=== PATIENT | male | born 1955 | race American Indian/Alaskan Native ===

== ENCOUNTER 2022-06-16 11:55 | Inpatient (IN) | payer OTHER ==
--- NOTE | 2022-06-16 12:52 | Cat Scan Report ---
CT HEAD WITHOUT CONTRAST INDICATION / CLINICAL INFORMATION: Stroke symptoms. Right arm numbness. TECHNIQUE: All CT scans at this location are performed using CT dose reduction for ALARA by means of automated e xposure control. COMPARISON: None available. FINDINGS: HEMORRHAGE: No evidence of intracranial hemorrhage or extra-axial fluid collection. EXTRA-AXIAL SPACES: Cortical sulci, sylvian fissures and basilar cisterns have an unremarkable appear ance. VENTRICULAR SYSTEM: The third and lateral ventricles are the upper limit of normal for size given the patient's age.. CEREBRAL PARENCHYMA: Subtle periventricular and deep white matter lucencies noted compatible with manny rovascular ischemic change. A small region of decreased brain parenchymal attenuation is observed at the medial aspect of the left parietal vertex. This could represent an area of infarction, age indete rminate. Correlation with magnetic resonance imaging is suggested. MIDLINE SHIFT OR HERNIATION: There is no mass effect. CEREBELLUM / BRAINSTEM: Brainstem and cerebellum have an unremarkable appearance. MIDLINE STRUCTURES:No abnormalities of the pituitary gland or pineal region are identified. INTRACRANIAL VESSELS:No abnormalities are identified on this noncontrast head CT. ORBITS: visualized portions of the orbits have an unremarkable appearance. SOFT TISSUES of HEAD: No significant abnormality. CALVARIUM: Evaluation of bone windows reveals no abnormalities. PARANASAL SINUSES / MASTOID AIR CELLS: Visualized portions of the paranasal sinuses are free from inf lammatory mucosal disease. Mastoid air cells are normally pneumatized. ADDITIONAL FINDINGS: None. IMPRESSION: 1. 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 T his is age indeterminate. Correlation with magnetic resonance imaging would be useful for further cla rification of this finding. CODE STROKE: Time of Communication (DYE BECK REEL OPERATOR/CDT): 1145 Central standard time Licensed Practitioner Receiving Report: Dr. Saeed Signer Name: Omkar Lua MD Signed: 06/16/2022 12:47 PM Workstation Name: [id number]
--- NOTE | 2022-06-16 13:15 | XRay Report ---
CHEST 1 VIEW 06/16/2022 12:50 PM INDICATION / CLINICAL INFORMATION: cva. COMPARISON: None available. FINDINGS: SUPPORT DEVICES: There is a dual lead left pacemaker in expected position. HEART / MEDIASTINUM: Normal size of the cardiac silhouette with mild aortic calcification. LUNGS / PLEURA: No significant pulmonary abnormality. No significant pleural effusion. No pneumothora x. ADDITIONAL FINDINGS: There is mild thoracic spondylosis. IMPRESSION: 1. No acute abnormality of the chest. Signer Name: Emiliano Burt MD Signed: 06/16/2022 1:11 PM Workstation Name: [id number]
--- NOTE | 2022-06-16 13:18 | Consultation ---
History of Present Illness Consult date: 06/16/22 History of present illness: [facility] Consult Note # Demographics Consult Type: Acute Stroke Level 1 (0-4.5 hrs) Patient Location: Emergency Room First Name: Parag Last Name: James Date of : 1955 Age: 66 Gender: Male Facility: [facility] Time of Initial Page ( Time): 06/16/2022, 12:09 Time of Return Call ( Time): 06/16/2022, 12:09 # HPI Chief Complaint: weakness (focal) History: Patient reported difficulty lifting keys with right hand yesterday evening. He also reported right hand spasms. Last Known Normal: I have collected independent history specific to time last normal or last known well. We have collaborated with the provider and at this time, we have the most current timeline with the information that is available. 7pm Duration: constant hours days Possible Thrombolytic candidate: not on warfarin or NOACs no intracranial hemorrhage history no recent major surgery Associated Symptoms: no headache no neck pain # Scores Time of exam and NIHSS ( Time): 06/16/2022, 12:13 Level of Consciousness 1a: [0] = Alert; keenly responsive LOC Questions 1b: [0] = Answers both questions correctly LOC Commands 1c: [0] = Performs both tasks correctly Best Gaze 2: [0] = Normal Visual 3: [0] = No visual loss Facial Palsy 4: [0] = Normal symmetrical movements Motor Arm Left 5a: [0] = No drift Motor Arm Right 5b: [0] = No drift Motor Leg Left 6a: [0] = No drift Motor Leg Right 6b: [0] = No drift Limb Ataxia 7: [0] = Absent Sensory 8: [1] = [id number] sensory loss Best Language 9: [0] = No aphasia Dysarthria 10: [0] = Normal Extinction and Inattention 11: [0] = No abnormality NIHSS Total: 1 Modified Grady Scale (mRS) pre-stroke: [0] = No Symptoms Modified Kash Scale total: 0 VAN Screening: Negative # Exam SBP: 135 DBP: 80 Mental Status: awake alert and oriented x 3 follows commands Language: normal speech Motor: Difficulty with right wrist extension Additional Neurologic Exam: Evaluation limited due to observational assessment. In-person exam may be helpful for more subtle signs that cannot be detected via telemedicine. # ROS Pulmonary: no shortness of breath Cardiovascular: no chest pain # PMH-FH-SH Past Medical History: Diabetes hypertension Social History: non-smoker Medications: antihypertensive diabetic medication No antithrombotics or anticoagulants reported Allergies: NKDA # Data Glucose: 62 # Assessment Impression: Weakness Stroke versus peripheral process # Plan Thrombolytic/Intervention: NOT IV Thrombolysis or IA Intervention candidate Thrombolytic Exclusion (< 3 hour window): time of onset unclear Thrombolytic Exclusion: > 4.5 hours Target Blood Pressure: SBP < 220 Labs: CBC comprehensive metabolic panel ESR hemoglobin A1c lipid panel troponin TSH urine drug screen ua Imaging: (urgency: STAT): CT Head without contrast CT Angiogram Head and CT Angiogram Neck AND call back with results if abnormal Imaging: (urgency: routine): MRI Brain without contrast Diagnostic Test: echo without bubble study Therapy/Evaluation: NPO until swallow evaluation PT/OT evaluation Medication: aspirin 81 mg PLUS clopidogrel (Plavix) 75 mg for 21 days, then monotherapy therafter start statin with goal of LDL < 70 Other: LDL < 70 If patient has any neurological deterioration please call me back immediately permissive hypertension telemetry monitoring I have discussed my recommendations with the referring provider Outpatient Neurology consultation for further evaluation & management Disposition: admit # Demographics First Name: Parag Last Name: James Facility: [facility] Medications and Allergies Allergies Allergy/AdvReac Type Severity Reaction Status Date / Time No Known Allergies Allergy Unverified 06/16/22 12:00 Physical Examination - Vital Signs Vital Signs: Vital Signs Temp Pulse Resp BP Pulse Ox 97.6 F 81 20 135/81 100 06/16/22 12:06 06/16/22 12:06 06/16/22 12:06 06/16/22 12:06 06/16/22 12:06
--- NOTE | 2022-06-16 13:22 | Cat Scan Report ---
CTA NECK WITH CONTRAST 06/16/2022 INDICATION / CLINICAL INFORMATION: stroke sx. Right arm numbness COMPARISON: None. TECHNIQUE: Routine CTA of the neck is performed. 3-D/MIP reformats were postprocessed. Percentage st enosis is determined by direct quantitative measurements of diseased internal carotid artery diameter compared with normal distal internal carotid artery reference segments or by criteria similar to BLU CET where applicable. All CT scans at this location are performed using CT dose reduction for ALARA b y means of automated exposure control. CONTRAST: 100 ml of Omnipaque 350 FINDINGS: Carotid bifurcations: There is no evidence of carotid bifurcation stenosis. Carotid arteries: No significant abnormality. Cervical vertebral arteries: No significant abnormality. Aortic arch: No significant abnormality. Small bilateral pleural effusions are noted incidentally. Thyroid gland is moderately enlarged. There is a 11 mm left thyroid nodule present. IMPRESSION: No significant vascular abnormality. INCIDENTAL THYROID NODULE RECOMMENDATIONS Nonpalpable nodules detected on US or other anatomic imaging studies are termed incidentally discover ed nodules or incidentalomas. Nonpalpable nodules have the same risk of malignancy as palpable nodule s with the same size. Generally, only nodules >1 cm should be evaluated, since they have a greater po tential to be clinically significant cancers. (TENNILLE, 2009). Follow up for incidental thyroid nodules <1 cm is not recommended. In patients <35 years with an incidental thyroid nodule detected on CT, MRI, or extrathyroidal ultras ound, dedicated thyroid ultrasound is recommended if the nodule is 1 cm, has no suspicious imaging fe atures, and if the patient has normal life expectancy. In patients 35 years with an incidental thyroid nodule detected on CT, MRI, or extrathyroidal ultraso und, dedicated thyroid ultrasound is recommended if the nodule is 1.5 cm, has no suspicious imaging f eatures, and if the patient has normal life expectancy. Signer Name: Joel Mitchell MD Signed: 06/16/2022 1:17 PM Workstation Name: [id number]
--- NOTE | 2022-06-16 13:24 | Cat Scan Report ---
CTA HEAD WITH CONTRAST 06/16/2022 HISTORY: stroke sx. Right arm numbness COMPARISON: None. TECHNIQUE: All CT scans at this location are performed using CT dose reduction for ALARA by means of automated exposure control.. 3-D/MIP reformats postprocessed. Percentage stenosis is determined by d irect quantitative measurements of diseased internal carotid artery diameter compared with normal dis nicol internal carotid artery reference segments or by criteria similar to NASCET where applicable. CONTRAST: 100 ml of Omnipaque 350 FINDINGS: CTA HEAD: Intracranial vertebral arteries: No significant abnormality. Basilar artery: No significant abnormality. Posterior cerebral arteries: No significant abnormality. Intracranial internal carotid arteries: No significant abnormality. Anterior cerebral arteries: No significant abnormality. Middle cerebral arteries: No significant abnormality. Dural venous sinuses:Not optimally opacified. No significant abnormality. Additional findings: None. IMPRESSION: 1. No significant abnormality. Signer Name: Joel Mitchell MD Signed: 06/16/2022 1:19 PM Workstation Name: [id number]
[2022-06-16 13:56] LABS: Basophils % (Auto) 0.6 % (0.0-1.8); Eosinophils % (Auto) 0.7 % (0.0-4.3); Hematocrit 53.3 % (35.5-45.6); Hemoglobin 18.3 gm/dl (11.8-15.2); Lymphocytes # (Auto) 0.5 K/mm3 (1.2-5.4); Lymphocytes % (Auto) 11.7 % (13.4-35.0); Mean Corpuscular HGB Conc 34 % (32-34); Mean Corpuscular Volume 93 fl (84-94); Monocytes # (Auto) 0.4 K/mm3 (0.0-0.8); Monocytes % (Auto) 10.8 % (0.0-7.3); Platelet Count 245 K/mm3 (140-440); Red Blood Count 5.73 M/mm3 (3.65-5.03); Red Cell Distribution Width 14.6 % (13.2-15.2)
[2022-06-16 14:06] LABS: INR 0.94 (0.87-1.13)
[2022-06-16 14:07] LABS: Partial Thromboplastin Time 29.7 Sec. (24.2-36.6); Thrombin Time 24.2 Sec. (15.1-19.6)
[2022-06-16 14:15] LABS: Alanine Aminotransferase 29 units/L (7-56); Albumin 3.8 g/dL (3.9-5); BUN/Creatinine Ratio 14; Blood Urea Nitrogen 18 mg/dL (9-20); Calcium 9.7 mg/dL (8.4-10.2); Hemolysis Index 8
[2022-06-16 14:39] LABS: Creatine Kinase MB 4.6 ng/mL (0.0-4.0)
[2022-06-16 14:40] LABS: Amphetamine Screen,Urine Negative; Benzodiazepines Screen,Urine Negative; Cannabinoid Screen,Urine Negative; Cocaine Screen,Urine Negative; Methadone Screen,Urine Negative; Opiate Screen,Urine Negative
--- NOTE | 2022-06-16 15:11 | Emergency Department Report ---
ED Neuro Deficit HPI - General Chief Complaint: Neuro Symptoms/Deficit Stated Complaint: STROKE LIKE SYM Time Seen by Provider: 06/16/22 12:21 Source: patient Mode of arrival: Ambulatory Limitations: Physical Limitation - History of Present Illness Initial Comments: RIGHT ARM AND RIGHT LEG NUMBNEES AND TINGLING. STARTED LAST NIGHT 7PM. NO FACIAL DROOP. NO SLURRED SPEECH. RIGHT ARM DRIFT. -: Sudden, hour(s) Location: right arm, right leg Presenting Symptoms: Present: Weak/Paralyzed One Side History of same: No Place: outdoors Severity: moderate Quality: weak, constant Worsens With: none On Anticoagulants: No Context: sudden onset Associated Symptoms: denies: denies other symptoms, confusion, chest pain, cough - Related Data Allergies/Adverse Reactions: Allergies Allergy/AdvReac Type Severity Reaction Status Date / Time No Known Allergies Allergy Unverified 06/16/22 12:00 ED Review of Systems ROS: Stated complaint: STROKE LIKE SYM Other details as noted in HPI Constitutional: denies: chills, fever Eyes: denies: eye pain, eye discharge, vision change ENT: denies: ear pain, throat pain Respiratory: denies: cough, shortness of breath, wheezing Cardiovascular: denies: chest pain, palpitations Endocrine: no symptoms reported Gastrointestinal: denies: abdominal pain, nausea, diarrhea Genitourinary: denies: urgency, dysuria Musculoskeletal: denies: back pain, joint swelling, arthralgia Skin: denies: rash, lesions Neurological: denies: headache, weakness, paresthesias Psychiatric: denies: anxiety, depression Hematological/Lymphatic: denies: easy bleeding, easy bruising ED Past Medical Hx - Past Medical History Previous Medical History?: No Hx Hypertension: No Hx CVA: No - Surgical History Hx Pacemaker: Yes ED Neuro Physical Exam - General Limitations: Physical Limitation General appearance: alert, in no apparent distress Suspected Stroke: Yes - Head Head exam: Present: atraumatic, normocephalic - Eye Eye exam: Present: normal appearance - ENT ENT exam: Present: mucous membranes moist - Neck Neck exam: Present: normal inspection - Respiratory Respiratory exam: Present: normal lung sounds bilaterally. Absent: respiratory distress - Cardiovascular Cardiovascular Exam: Present: regular rate, normal rhythm. Absent: systolic murmur, diastolic murmur, rubs, gallop - GI/Abdominal GI/Abdominal exam: Present: soft, normal bowel sounds - Rectal Rectal exam: Present: deferred - Extremities Exam Extremities exam: Present: normal inspection - Back Exam Back exam: Present: normal inspection - Neurological Exam Neurological exam: Present: alert, oriented X3 - NIHSS Assessment Interval: Baseline 1a. Level of Consciousness: alert/keenly responsive 1b. LOC Questions: answers both correctly 1c. LOC Commands: performs tasks correctly 2. Best Gaze: normal 3. Visual: no visual loss 4. Facial Palsy: normal symmetrical movement 5b. Motor Arm Right: no drift 5a. Motor Arm Left: no drift 6a. Motor Leg Left: no drift 6b. Motor Leg Right: no drift 7. Limb Ataxia: absent 8. Sensory: mild/moderate sensory loss 9. Best Language: no aphasia 10. Dysarthria: normal 11. Extinction/Inattention: no abnormality Total Score: 1 Stroke Severity: Minor Stroke - Psychiatric Psychiatric exam: Present: normal affect, normal mood - Skin Skin exam: Present: warm, dry, intact, normal color. Absent: rash ED Course Vital Signs 06/16/22 06/16/22 06/16/22 12:06 13:03 13:17 Temperature 97.6 F 98.0 F Pulse Rate 81 61 Respiratory 20 14 14 Rate Blood Pressure 135/81 169/88 [Right] O2 Sat by Pulse 100 100 100 Oximetry 06/16/22 14:15 Temperature Pulse Rate 77 Respiratory 14 Rate Blood Pressure 153/101 [Right] O2 Sat by Pulse 99 Oximetry - Lab Data Result diagrams: 06/16/22 13:30 06/16/22 13:30 Lab Results 06/16/22 06/16/22 06/16/22 Range/Units 13:06 13:30 13:30 WBC 4.1 L (4.5-11.0) K/mm3 RBC 5.73 H (3.65-5.03) M/mm3 Hgb 18.3 H (11.8-15.2) gm/dl Hct 53.3 H (35.5-45.6) % MCV 93 (84-94) fl MCH 32 (28-32) pg MCHC 34 (32-34) % RDW 14.6 (13.2-15.2) % Plt Count 245 (140-440) K/mm3 Lymph % (Auto) 11.7 L (13.4-35.0) % Edgar % (Auto) 10.8 H (0.0-7.3) % Eos % (Auto) 0.7 (0.0-4.3) % Baso % (Auto) 0.6 (0.0-1.8) % Lymph # (Auto) 0.5 L (1.2-5.4) K/mm3 Edgar # (Auto) 0.4 (0.0-0.8) K/mm3 Eos # (Auto) 0.0 (0.0-0.4) K/mm3 Baso # (Auto) 0.0 (0.0-0.1) K/mm3 Seg Neutrophils % 76.2 H (40.0-70.0) % Seg Neutrophils # 3.1 (1.8-7.7) K/mm3 PT 13.6 (12.2-14.9) Sec. INR 0.94 (0.87-1.13) APTT 29.7 (24.2-36.6) Sec. Thrombin Time 24.2 H (15.1-19.6) Sec. Sodium (137-145) mmol/L Potassium (3.6-5.0) mmol/L Chloride (98-107) mmol/L Carbon Dioxide (22-30) mmol/L Anion Gap mmol/L BUN (9-20) mg/dL Creatinine (0.8-1.3) mg/dL Estimated GFR ml/min BUN/Creatinine Ratio % Glucose (75-100) mg/dL POC Glucose 46 L (70-105) mg/dL Calcium (8.4-10.2) mg/dL Total Bilirubin (0.1-1.2) mg/dL AST (5-40) units/L ALT (7-56) units/L Alkaline Phosphatase (35-129) units/L Total Creatine Kinase (55-170) units/L CK-MB (CK-2) (0.0-4.0) ng/mL CK-MB (CK-2) Rel Index (0-4) Troponin T (0.00-0.029) ng/mL Total Protein (6.3-8.2) g/dL Albumin (3.9-5) g/dL Albumin/Globulin Ratio % Urine Opiates Screen Urine Methadone Screen Ur Barbiturates Screen Ur Phencyclidine Scrn Ur Amphetamines Screen U Benzodiazepines Scrn Urine Cocaine Screen U Marijuana (THC) Screen Drugs of Abuse Note 06/16/22 06/16/22 Range/Units 13:30 14:16 WBC (4.5-11.0) K/mm3 RBC (3.65-5.03) M/mm3 Hgb (11.8-15.2) gm/dl Hct (35.5-45.6) % MCV (84-94) fl MCH (28-32) pg MCHC (32-34) % RDW (13.2-15.2) % Plt Count (140-440) K/mm3 Lymph % (Auto) (13.4-35.0) % Edgar % (Auto) (0.0-7.3) % Eos % (Auto) (0.0-4.3) % Baso % (Auto) (0.0-1.8) % Lymph # (Auto) (1.2-5.4) K/mm3 Edgar # (Auto) (0.0-0.8) K/mm3 Eos # (Auto) (0.0-0.4) K/mm3 Baso # (Auto) (0.0-0.1) K/mm3 Seg Neutrophils % (40.0-70.0) % Seg Neutrophils # (1.8-7.7) K/mm3 PT (12.2-14.9) Sec. INR (0.87-1.13) APTT (24.2-36.6) Sec. Thrombin Time (15.1-19.6) Sec. Sodium 142 (137-145) mmol/L Potassium 4.2 (3.6-5.0) mmol/L Chloride 102.0 (98-107) mmol/L Carbon Dioxide 28 (22-30) mmol/L Anion Gap 16 mmol/L BUN 18 (9-20) mg/dL Creatinine 1.3 (0.8-1.3) mg/dL Estimated GFR > 60 ml/min BUN/Creatinine Ratio 14 % Glucose 48 L (75-100) mg/dL POC Glucose (70-105) mg/dL Calcium 9.7 (8.4-10.2) mg/dL Total Bilirubin 0.80 (0.1-1.2) mg/dL AST 26 (5-40) units/L ALT 29 (7-56) units/L Alkaline Phosphatase 153 H (35-129) units/L Total Creatine Kinase 84 (55-170) units/L CK-MB (CK-2) 4.6 H (0.0-4.0) ng/mL CK-MB (CK-2) Rel Index 5.4 H (0-4) Troponin T < 0.010 (0.00-0.029) ng/mL Total Protein 6.3 (6.3-8.2) g/dL Albumin 3.8 L (3.9-5) g/dL Albumin/Globulin Ratio 1.5 % Urine Opiates Screen Negative Urine Methadone Screen Negative Ur Barbiturates Screen Negative Ur Phencyclidine Scrn Negative Ur Amphetamines Screen Negative U Benzodiazepines Scrn Negative Urine Cocaine Screen Negative U Marijuana (THC) Screen Negative Drugs of Abuse Note Disclamer - Radiology Data Radiology results: report reviewed, image reviewed Critical care attestation.: If time is entered above; I have spent that time in minutes in the direct care of this critically ill patient, excluding procedure time. ED Disposition Clinical Impression: CVA (cerebral vascular accident) Disposition: 09 ADMITTED INPATIENT Is pt being admited?: Yes Does the pt Need Aspirin: Yes Condition: Stable Referrals: MD KAUSHAL [Other] - 3-5 Days
[2022-06-16 15:39] LABS: Color,Urine Yellow (Yellow)
[2022-06-16 15:40] LABS: Mucus,Urine FEW /HPF
[2022-06-16] MEDS ORDERED: ACETAMINOPHEN 325 MG TAB PO PRN (16:41)
[2022-06-16] MEDS ORDERED: MORPHINE 2 MG/1 ML INJ IV PRN (16:41)
[2022-06-16] MEDS ORDERED: ONDANSETRON 4 MG/2 ML INJ IV PRN (16:41)
[2022-06-16] MEDS ORDERED: oxyCODONE /ACETAMINOPHEN 5-325MG TAB PO PRN (16:41)
--- NOTE | 2022-06-16 16:41 | History and Physical Report ---
History of Present Illness Date of examination: 06/16/22 Date of admission: 06/16/2022 Chief complaint: Right-sided weakness and numbness History of present illness: 66-year-old male with no significant past medical history except for pacemaker insertion and a poor historian comes in for right arm and right leg numbness and tingling since last night. Slight weakness on the right side. No slurred speech. Patient able to walk. During my examination patient had some right-sided numbness. No weakness. Code stroke was called. - Past Medical History --PPM - Surgical History --Pacemaker: Yes -Family history --Htn - Social history --no smoking or alcohol Review of Systems ROS: Stated complaint: STROKE LIKE SYM Other details as noted in HPI Constitutional: denies: chills, fever Eyes: denies: eye pain, eye discharge, vision change ENT: denies: ear pain, throat pain Respiratory: denies: cough, shortness of breath, wheezing Cardiovascular: denies: chest pain, palpitations Endocrine: no symptoms reported Gastrointestinal: denies: abdominal pain, nausea, diarrhea Genitourinary: denies: urgency, dysuria Musculoskeletal: denies: back pain, joint swelling, arthralgia [employer] right-sided numbness and weakness denies: headache, weakness, paresthesias Psychiatric: denies: anxiety, depression Hematological/Lymphatic: denies: easy bleeding, easy bruising Medications and Allergies Allergies Allergy/AdvReac Type Severity Reaction Status Date / Time No Known Allergies Allergy Unverified 06/16/22 12:00 Exam - Constitutional Vitals: Temp Pulse Resp BP Pulse Ox 98.0 F 77 14 153/101 99 06/16/22 13:17 06/16/22 14:15 06/16/22 14:15 06/16/22 14:15 06/16/22 14:15 General appearance: Present: no acute distress, well-nourished - EENT Eyes: Present: PERRL ENT: hearing intact, clear oral mucosa - Neck Neck: Present: supple, normal ROM - Respiratory Respiratory effort: normal Respiratory: bilateral: CTA - Cardiovascular Heart Sounds: Present: S1 & S2. Absent: rub, click - Extremities Extremities: pulses symmetrical, No edema Peripheral Pulses: within normal limits - Abdominal General gastrointestinal: Present: soft, non-tender, non-distended, normal bowel sounds Male genitourinary: Present: normal - Integumentary Integumentary: Present: clear, warm, dry - Musculoskeletal Musculoskeletal: gait normal, strength equal bilaterally - Psychiatric Psychiatric: appropriate mood/affect, intact judgment & insight - Neurologic Neurologic: CNII-XII intact, focal deficits (Right-sided decreased sensation), moves all extremities HEART Score - HEART Score Age: 45-65 Risk factors: No known risk factors Troponin: Troponin T < 0.010 ng/mL (0.00-0.029) 06/16/22 13:30 Troponin: < normal limit - Critical Actions Critical Actions: 0-3 pts:0.9-1.7%risk of adverse cardiac event.Candidate for discharge Results - Labs CBC & Chem 7: 06/16/22 13:30 06/16/22 13:30 Labs: Laboratory Last Values WBC 4.1 K/mm3 (4.5-11.0) L 06/16/22 13:30 RBC 5.73 M/mm3 (3.65-5.03) H 06/16/22 13:30 Hgb 18.3 gm/dl (11.8-15.2) H 06/16/22 13:30 Hct 53.3 % (35.5-45.6) H 06/16/22 13:30 MCV 93 fl (84-94) 06/16/22 13:30 MCH 32 pg (28-32) 06/16/22 13:30 MCHC 34 % (32-34) 06/16/22 13:30 RDW 14.6 % (13.2-15.2) 06/16/22 13:30 Plt Count 245 K/mm3 (140-440) 06/16/22 13:30 Lymph % (Auto) 11.7 % (13.4-35.0) L 06/16/22 13:30 [place] % (Auto) 10.8 % (0.0-7.3) H 06/16/22 13:30 Eos % (Auto) 0.7 % (0.0-4.3) 06/16/22 13:30 Baso % (Auto) 0.6 % (0.0-1.8) 06/16/22 13:30 Lymph # (Auto) 0.5 K/mm3 (1.2-5.4) L 06/16/22 13:30 [place] # (Auto) 0.4 K/mm3 (0.0-0.8) 06/16/22 13:30 Eos # (Auto) 0.0 K/mm3 (0.0-0.4) 06/16/22 13:30 Baso # (Auto) 0.0 K/mm3 (0.0-0.1) 06/16/22 13:30 Seg Neutrophils % 76.2 % (40.0-70.0) H 06/16/22 13:30 Seg Neutrophils # 3.1 K/mm3 (1.8-7.7) 06/16/22 13:30 PT 13.6 Sec. (12.2-14.9) 06/16/22 13:30 INR 0.94 (0.87-1.13) 06/16/22 13:30 APTT 29.7 Sec. (24.2-36.6) 06/16/22 13:30 Thrombin Time 24.2 Sec. (15.1-19.6) H 06/16/22 13:30 Sodium 142 mmol/L (137-145) 06/16/22 13:30 Potassium 4.2 mmol/L (3.6-5.0) 06/16/22 13:30 Chloride 102.0 mmol/L (98-107) 06/16/22 13:30 Carbon Dioxide 28 mmol/L (22-30) 06/16/22 13:30 Anion Gap 16 mmol/L 06/16/22 13:30 BUN 18 mg/dL (9-20) 06/16/22 13:30 Creatinine 1.3 mg/dL (0.8-1.3) 06/16/22 13:30 Estimated GFR > 60 ml/min 06/16/22 13:30 BUN/Creatinine Ratio 14 % 06/16/22 13:30 Glucose 48 mg/dL (75-100) L 06/16/22 13:30 POC Glucose 46 mg/dL (70-105) L 06/16/22 13:06 Calcium 9.7 mg/dL (8.4-10.2) 06/16/22 13:30 Total Bilirubin 0.80 mg/dL (0.1-1.2) 06/16/22 13:30 AST 26 units/L (5-40) 06/16/22 13:30 ALT 29 units/L (7-56) 06/16/22 13:30 Alkaline Phosphatase 153 units/L (35-129) H 06/16/22 13:30 Total Creatine Kinase 84 units/L (55-170) 06/16/22 13:30 CK-MB (CK-2) 4.6 ng/mL (0.0-4.0) H 06/16/22 13:30 CK-MB (CK-2) Rel Index 5.4 (0-4) H 06/16/22 13:30 Troponin T < 0.010 ng/mL (0.00-0.029) 06/16/22 13:30 Total Protein 6.3 g/dL (6.3-8.2) 06/16/22 13:30 Albumin 3.8 g/dL (3.9-5) L 06/16/22 13:30 Albumin/Globulin Ratio 1.5 % 06/16/22 13:30 Urine Color Yellow (Yellow) 06/16/22 14:16 Urine Turbidity Clear (Clear) 06/16/22 14:16 Specific [place] (Man) 1.029 (1.003-1.030) 06/16/22 14:16 Ur Protein (Man) 2+ mg/dL (Negative) 06/16/22 14:16 Ur Ketones (Man) 5mg/dl (Negative) 06/16/22 14:16 Ur Nitrite (Man) Negative (Negative) 06/16/22 14:16 Urine Bilirubin (Man) Negative (Negative) 06/16/22 14:16 Urine Ictotest Not Reportable 06/16/22 14:16 Leukocyte Esterase (Man) Negative (Negative) 06/16/22 14:16 Urine WBC (Auto) 1.0 /HPF (0.0-6.0) 06/16/22 14:16 Urine RBC (Auto) 1.0 /HPF (0.0-6.0) 06/16/22 14:16 Urine RBC (Manual) Negative (Negative) 06/16/22 14:16 Urine Mucus Few /HPF 06/16/22 14:16 Urine Opiates Screen Negative 06/16/22 14:16 Urine Methadone Screen Negative 06/16/22 14:16 Ur Barbiturates Screen Negative 06/16/22 14:16 Ur Phencyclidine Scrn Negative 06/16/22 14:16 Ur Amphetamines Screen Negative 06/16/22 14:16 U Benzodiazepines Scrn Negative 06/16/22 14:16 Urine Cocaine Screen Negative 06/16/22 14:16 U Marijuana (THC) Screen Negative 06/16/22 14:16 Drugs of Abuse Note Disclamer 06/16/22 14:16 Short CBC 06/16/22 Range/Units 13:30 WBC 4.1 L (4.5-11.0) K/mm3 Hgb 18.3 H (11.8-15.2) gm/dl Hct 53.3 H (35.5-45.6) % Plt Count 245 (140-440) K/mm3 BMP 06/16/22 06/17/22 13:30 06:36 Sodium 142 141 Potassium 4.2 3.7 Chloride 102.0 103.9 Carbon Dioxide 28 24 BUN 18 22 H Creatinine 1.3 1.8 H Glucose 48 L 323 H Calcium 9.7 8.4 Cardiac Enzymes 06/16/22 Range/Units 13:30 Total Creatine Kinase 84 (55-170) units/L CK-MB (CK-2) 4.6 H (0.0-4.0) ng/mL Troponin T < 0.010 (0.00-0.029) ng/mL Liver Function 06/16/22 06/17/22 Range/Units 13:30 06:36 Total Bilirubin 0.80 0.60 (0.1-1.2) mg/dL AST 26 14 (5-40) units/L ALT 29 19 (7-56) units/L Alkaline Phosphatase 153 H 113 (35-129) units/L Albumin 3.8 L 3.1 L (3.9-5) g/dL Urine 06/16/22 Range/Units 14:16 Urine Color Yellow (Yellow) - Imaging and Cardiology EKG: report reviewed (Normal sinus rhythm no acute ST-T wave changes) Chest x-ray: report reviewed Imaging and Cardiology: Head CT Findings there is a presence of small cortical infarction involving the left parietal vertex. This is age-indeterminate. Correlation with MRI would be useful for further classification of this finding. Head CT and neck CTA No significant abnormalities Assessment and Plan Advance Directives: Yes (Full code) VTE prophylaxis?: Chemical Plan of care discussed with patient/family: Yes - Patient Problems (1) Acute CVA (cerebrovascular accident) Current Visit: Yes Status: Acute Plan to address problem: Right-sided numbness Rule out thalamic stroke MRI is not possible because of the patient's pacemaker. Clinical diagnosis Neurology consult No motor deficits Echocardiogram Patient may be discharged on DOAC after the echocardiogram results (2) Polycythemia due to fall in plasma volume Current Visit: Yes Status: Acute Plan to address problem: IV fluids for now (3) DVT prophylaxis Current Visit: Yes Status: Acute Plan to address problem: On heparin and GI prophylaxis (4) Advance care planning Current Visit: Yes Status: Acute Plan to address problem: , Disease education conducted and care plan discussed diagnosis discussed and prognosis discussed. Patient is full code. Patient acknowledges understanding with care plan. +30 minutes.
[2022-06-16] MEDS: FAMOTIDINE 10 MG TAB PO SCH (22:33)
[2022-06-16] MEDS: SODIUM CHLORIDE 0.9% 1000 ML 1,000 ML IV SCH (23:15)
[2022-06-17 08:03] LABS: Albumin 3.1 g/dL (3.9-5); Calcium 8.4 mg/dL (8.4-10.2)
[2022-06-17] MEDS: INSULIN LISPRO 100 UNIT/ML SUB-Q SCH ×4 (08:05→21:12)
[2022-06-17] MEDS: FAMOTIDINE 10 MG TAB PO SCH ×2 (09:22→21:13)
--- NOTE | 2022-06-17 09:35 | Progress Note ---
Assessment and Plan Assessment and plan: Head CT Findings there is a presence of small cortical infarction involving the left parietal vertex. This is age-indeterminate. Correlation with MRI would be useful for further classification of this finding. Head CT and neck CTA No significant abnormalities Assessment and Plan Advance Directives: Yes (Full code) VTE prophylaxis?: Chemical Plan of care discussed with patient/family: Yes - Patient Problems -- Acute CVA (cerebrovascular accident) CT head small cortical infarction involving left parietal vertex, age indeterminate MRI is not possible because of the patient's pacemaker. Neurology evaluation pending Echocardiogram; EF less than 20% no PFO Patient may be discharged on DOAC after the echocardiogram results --Acute versus acute on chronic systolic congestive heart failure ; LVEF less than 20% IV diuretics, beta-blockers No LAUREN inhibitors in view of acute kidney injury with creatinine of 1.8 Input output monitoring Fluid restriction, low-sodium diet Cardiology consult -- Polycythemia due to fall in plasma volume Current Visit: Yes Status: Acute Plan to address problem: IV fluids for now --DVT prophylaxis Current Visit: Yes Status: Acute Plan to address problem: On heparin and GI prophylaxis -- Advance care planning Current Visit: Yes Status: Acute Plan to address problem: , Disease education conducted and care plan discussed diagnosis discussed and prognosis discussed. Patient is full code. Patient acknowledges unders tanding with care plan. +30 minutes. History Interval history: I have seen and examined the patient at the bedside Patient's chart and medications reviewed Patient feels slightly better today His right-sided weakness significantly improved Neuro work-up is in progress Vital signs noted Hospitalist Physical - Constitutional Vitals: Temp Pulse Resp BP Pulse Ox 97.9 F 73 16 165/103 97 06/17/22 03:56 06/17/22 03:56 06/17/22 03:56 06/17/22 03:56 06/17/22 03:56 General appearance: Present: no acute distress, well-nourished - EENT Eyes: Present: PERRL, EOM intact - Neck Neck: Present: supple, normal ROM - Respiratory Respiratory effort: normal Respiratory: bilateral: diminished, negative: rales, rhonchi, wheezing - Cardiovascular Rhythm: regular Heart Sounds: Present: S1 & S2 - Extremities Extremities: no ischemia, No edema - Abdominal General gastrointestinal: soft, non-tender, non-distended, normal bowel sounds - Integumentary Integumentary: Present: clear, warm - Psychiatric Psychiatric: appropriate mood/affect, cooperative - Neurologic Neurologic: moves all extremities HEART Score - HEART Score Age: 45-65 Risk factors: No known risk factors Troponin: Troponin T < 0.010 ng/mL (0.00-0.029) 06/16/22 13:30 Troponin: < normal limit - Critical Actions Critical Actions: 0-3 pts:0.9-1.7%risk of adverse cardiac event.Candidate for discharge Results - Labs CBC & Chem 7: 06/17/22 06:36 06/17/22 06:36 Labs: Laboratory Last Values WBC 4.1 K/mm3 (4.5-11.0) L 06/16/22 13:30 RBC 5.73 M/mm3 (3.65-5.03) H 06/16/22 13:30 Hgb 18.3 gm/dl (11.8-15.2) H 06/16/22 13:30 Hct 53.3 % (35.5-45.6) H 06/16/22 13:30 MCV 93 fl (84-94) 06/16/22 13:30 MCH 32 pg (28-32) 06/16/22 13:30 MCHC 34 % (32-34) 06/16/22 13:30 RDW 14.6 % (13.2-15.2) 06/16/22 13:30 Plt Count 245 K/mm3 (140-440) 06/16/22 13:30 Lymph % (Auto) 11.7 % (13.4-35.0) L 06/16/22 13:30 [place] % (Auto) 10.8 % (0.0-7.3) H 06/16/22 13:30 Eos % (Auto) 0.7 % (0.0-4.3) 06/16/22 13:30 Baso % (Auto) 0.6 % (0.0-1.8) 06/16/22 13:30 Lymph # (Auto) 0.5 K/mm3 (1.2-5.4) L 06/16/22 13:30 [place] # (Auto) 0.4 K/mm3 (0.0-0.8) 06/16/22 13:30 Eos # (Auto) 0.0 K/mm3 (0.0-0.4) 06/16/22 13:30 Baso # (Auto) 0.0 K/mm3 (0.0-0.1) 06/16/22 13:30 Seg Neutrophils % 76.2 % (40.0-70.0) H 06/16/22 13:30 Seg Neutrophils # 3.1 K/mm3 (1.8-7.7) 06/16/22 13:30 PT 13.6 Sec. (12.2-14.9) 06/16/22 13:30 INR 0.94 (0.87-1.13) 06/16/22 13:30 APTT 29.7 Sec. (24.2-36.6) 06/16/22 13:30 Thrombin Time 24.2 Sec. (15.1-19.6) H 06/16/22 13:30 Sodium 141 mmol/L (137-145) 06/17/22 06:36 Potassium 3.7 mmol/L (3.6-5.0) 06/17/22 06:36 Chloride 103.9 mmol/L (98-107) 06/17/22 06:36 Carbon Dioxide 24 mmol/L (22-30) 06/17/22 06:36 Anion Gap 17 mmol/L 06/17/22 06:36 BUN 22 mg/dL (9-20) H 06/17/22 06:36 Creatinine 1.8 mg/dL (0.8-1.3) H 06/17/22 06:36 Estimated GFR 46 ml/min 06/17/22 06:36 BUN/Creatinine Ratio 12 % 06/17/22 06:36 Glucose 323 mg/dL (75-100) H 06/17/22 06:36 POC Glucose 310 mg/dL (70-105) H 06/17/22 08:16 Calcium 8.4 mg/dL (8.4-10.2) 06/17/22 06:36 Total Bilirubin 0.60 mg/dL (0.1-1.2) 06/17/22 06:36 AST 14 units/L (5-40) 06/17/22 06:36 ALT 19 units/L (7-56) 06/17/22 06:36 Alkaline Phosphatase 113 units/L (35-129) 06/17/22 06:36 Total Creatine Kinase 84 units/L (55-170) 06/16/22 13:30 CK-MB (CK-2) 4.6 ng/mL (0.0-4.0) H 06/16/22 13:30 CK-MB (CK-2) Rel Index 5.4 (0-4) H 06/16/22 13:30 Troponin T < 0.010 ng/mL (0.00-0.029) 06/16/22 13:30 Total Protein 4.8 g/dL (6.3-8.2) L D 06/17/22 06:36 Albumin 3.1 g/dL (3.9-5) L 06/17/22 06:36 Albumin/Globulin Ratio 1.8 % 06/17/22 06:36 Urine Color Yellow (Yellow) 06/16/22 14:16 Urine Turbidity Clear (Clear) 06/16/22 14:16 Specific [place] (Man) 1.029 (1.003-1.030) 06/16/22 14:16 Ur Protein (Man) 2+ mg/dL (Negative) 06/16/22 14:16 Ur Ketones (Man) 5mg/dl (Negative) 06/16/22 14:16 Ur Nitrite (Man) Negative (Negative) 06/16/22 14:16 Urine Bilirubin (Man) Negative (Negative) 06/16/22 14:16 Urine Ictotest Not Reportable 06/16/22 14:16 Leukocyte Esterase (Man) Negative (Negative) 06/16/22 14:16 Urine WBC (Auto) 1.0 /HPF (0.0-6.0) 06/16/22 14:16 Urine RBC (Auto) 1.0 /HPF (0.0-6.0) 06/16/22 14:16 Urine RBC (Manual) Negative (Negative) 06/16/22 14:16 Urine Mucus Few /HPF 06/16/22 14:16 Urine Opiates Screen Negative 06/16/22 14:16 Urine Methadone Screen Negative 06/16/22 14:16 Ur Barbiturates Screen Negative 06/16/22 14:16 Ur Phencyclidine Scrn Negative 06/16/22 14:16 Ur Amphetamines Screen Negative 06/16/22 14:16 U Benzodiazepines Scrn Negative 06/16/22 14:16 Urine Cocaine Screen Negative 06/16/22 14:16 U Marijuana (THC) Screen Negative 06/16/22 14:16 Drugs of Abuse Note Disclamer 06/16/22 14:16 Elaine/IV: Voiding Method Urinal Active Medications - Current Medications Current Medications: Generic Name Dose Route Start Last Admin Trade Name Freq PRN Reason Stop Dose Admin Acetaminophen 650 mg 06/16/22 16:41 Acetaminophen 325 Mg Tab PO Q4H PRN Pain MILD(1-3)/Fever >100.5/MOORE Aspirin 325 mg 06/17/22 10:00 06/17/22 09:22 Aspirin 325 Mg Tab PO 325 mg QDAY MONE Administration Atorvastatin Calcium 40 mg 06/16/22 22:00 06/16/22 22:33 Atorvastatin 40 Mg Tab PO 40 mg QHS MONE Administration Famotidine 10 mg 06/16/22 22:00 06/17/22 09:22 Famotidine 10 Mg Tab PO 10 mg BID MONE Administration Sodium Chloride 1,000 mls @ 75 mls/hr 06/16/22 16:45 06/16/22 23:15 Nacl 0.9% 1000 Ml IV 75 mls/hr DIRECT MONE Administration Insulin Human Isoph/Insulin Regular 20 unit 06/17/22 10:00 Insulin Nph/Regular 70/30 Inj SUB-Q BIDDIAB MONE Insulin Human Lispro 0 unit 06/17/22 11:30 Insulin Lispro 100 Unit/Ml SUB-Q ACHS MONE Protocol Morphine Sulfate 2 mg 06/16/22 16:41 Morphine 2 Mg/1 Ml Inj IV Q4H PRN Pain, Moderate (4-6) Ondansetron HCl 4 mg 06/16/22 16:41 Ondansetron 4 Mg/2 Ml Inj IV Q8H PRN Nausea And Vomiting Oxycodone/Acetaminophen 1 tab 06/16/22 16:41 Oxycodone /Acetaminophen 5-325mg Tab PO Q6H PRN Pain, Moderate (4-6) Sodium Chloride 10 ml 06/16/22 22:00 06/16/22 22:33 Sodium Chloride 0.9% 10 Ml Flush Syringe IV 10 ml BID MONE Administration Sodium Chloride 10 ml 06/16/22 16:41 Sodium Chloride 0.9% 10 Ml Flush Syringe IV PRN PRN LINE FLUSH Sodium Chloride 10 ml 06/16/22 17:49 Sodium Chloride 0.9% 10 Ml Flush Syringe IV PRN PRN LINE FLUSH
[2022-06-17] MEDS ORDERED: ASPIRIN 325 MG TAB PO SCH (10:00)
--- NOTE | 2022-06-17 10:06 | Consultation ---
History of Present Illness Consult date: 06/17/22 Reason for Consult: cva Chief complaint: Right-sided weakness History of present illness: 66 yo right-handed male with htn, dm, +ppm , difficulty w/ walking (at baseline) and so uses a cane ever since the pacemaker was inserted in Jul 2021. He presents with a LKNormal time on the evening of 06/15/22 while he was at [employer] and he started dropping things from his right hand; noticed weakness / numbness of arm (difficulty w/ gripping; difficulty w/ feet) right hand was constantly shaking yesterday; notes slight improvement today but not quite back to his baseline. Past History Past Medical History: other (+ppm) Past Surgical History: No surgical history, Other (+ppm) Social history: no significant social history Family history: no significant family history Medications and Allergies Allergies Allergy/AdvReac Type Severity Reaction Status Date / Time No Known Allergies Allergy Unverified 06/16/22 12:00 Active Meds: Active Medications Acetaminophen (Acetaminophen 325 Mg Tab) 650 mg PO Q4H PRN PRN Reason: Pain MILD(1-3)/Fever >100.5/MOORE Aspirin (Aspirin 325 Mg Tab) 325 mg PO QDAY [facility] Last Admin: 06/17/22 09:22 Dose: 325 mg Atorvastatin Calcium (Atorvastatin 40 Mg Tab) 40 mg PO QHS [facility] Last Admin: 06/16/22 22:33 Dose: 40 mg Famotidine (Famotidine 10 Mg Tab) 10 mg PO BID [facility] Last Admin: 06/17/22 09:22 Dose: 10 mg Sodium Chloride (Nacl 0.9% 1000 Ml) 1,000 mls @ 75 mls/hr IV DIRECT [facility] Last Admin: 06/16/22 23:15 Dose: 75 mls/hr Insulin Human Isoph/Insulin Regular (Insulin Nph/Regular 70/30 Inj) 20 unit SUB-Q BIDDIAB [facility] Insulin Human Lispro (Insulin Lispro 100 Unit/Ml) 0 unit SUB-Q ACHS [facility]; Protocol Morphine Sulfate (Morphine 2 Mg/1 Ml Inj) 2 mg IV Q4H PRN PRN Reason: Pain, Moderate (4-6) Ondansetron HCl (Ondansetron 4 Mg/2 Ml Inj) 4 mg IV Q8H PRN PRN Reason: Nausea And Vomiting Oxycodone/Acetaminophen (Oxycodone /Acetaminophen 5-325mg Tab) 1 tab PO Q6H PRN PRN Reason: Pain, Moderate (4-6) Sodium Chloride (Sodium Chloride 0.9% 10 Ml Flush Syringe) 10 ml IV BID MONE Last Admin: 06/16/22 22:33 Dose: 10 ml Sodium Chloride (Sodium Chloride 0.9% 10 Ml Flush Syringe) 10 ml IV PRN PRN PRN Reason: LINE FLUSH Sodium Chloride (Sodium Chloride 0.9% 10 Ml Flush Syringe) 10 ml IV PRN PRN PRN Reason: LINE FLUSH Review of Systems All systems: negative (as per hpi;) Physical Examination - Vital Signs Vital Signs: Vital Signs Temp Pulse Resp BP Pulse Ox 97.6 F 81 20 135/81 100 06/16/22 12:06 06/16/22 12:06 06/16/22 12:06 06/16/22 12:06 06/16/22 12:06 - Physical Exam Narrative exam: Gen: nad, well-nourished; Head: normocephalic; Eyes: no gaze deviation; no ptosis; ENT: normal vocalization; CVS: warm and well-perfused; Pulm: normal work of breathing; GI: appears non-distended; Ext: no cyanosis appreciated at distal extremities; Skin: no acute rash at distal extremities; Heme: no pathologic ecchymosis appreciated at distal extremities; Neuro: alert, oriented to name, age, month, year, surroundings, no dysarthria, no aphasia, CN 2 - PERRL, visual maddox grossly intact, CN 3, 4, 6 - EOMI, CN 5 - facial sensation symmetric to light touch, CN 7 - facial movement symmetric, CN 8 - hearing grossly intact, CN 9, 10 - uvula midline, CN 11 symmetric shoulder movement, CN 12 - tongue midline; Motor - at least 4+/5 at all exts except right hand helpdesk analyst is 3/5 strength; Sensory - light touch symmetric, Cerebellar - left fnf / bilatearl hts intact except right fnf deficit due to weakness, Gait - deferred secondary to fall risk; NIHSS (1a.) Level of Consciousness:0 (1b.) LOC Questions:0 (1c.) LOC Commands:0 (2.) Best Gaze:0 (3.) Visual:0 (4.) Facial Palsy:0 (5a.) Motor Arm, Left:0 (5b.) Motor Arm, Right:0 (6a.) Motor Leg, Left:0 (6b.) Motor Leg, Right:0 (7.) Limb Ataxia:0 (8.) Sensory:0 (9.) Best Language:0 (10.) Dysarthria: 0 (11.) Extinction and Inattention:0 NIHSS Total Score: 0 Results - Laboratory Findings CBC and BMP: 06/17/22 06:36 06/17/22 06:36 Abnormal Lab Findings: Abnormal Labs 06/16/22 06/16/22 06/16/22 13:06 13:30 13:30 WBC 4.1 L RBC 5.73 H Hgb 18.3 H Hct 53.3 H Lymph % (Auto) 11.7 L [place] % (Auto) 10.8 H Lymph # (Auto) 0.5 L Seg Neutrophils % 76.2 H Thrombin Time 24.2 H BUN Creatinine Glucose POC Glucose 46 L Alkaline Phosphatase CK-MB (CK-2) CK-MB (CK-2) Rel Index Total Protein Albumin 06/16/22 06/17/22 06/17/22 13:30 06:36 08:16 WBC RBC Hgb Hct Lymph % (Auto) [place] % (Auto) Lymph # (Auto) Seg Neutrophils % Thrombin Time BUN 22 H Creatinine 1.8 H Glucose 48 L 323 H POC Glucose 310 H Alkaline Phosphatase 153 H CK-MB (CK-2) 4.6 H CK-MB (CK-2) Rel Index 5.4 H Total Protein 4.8 L D Albumin 3.8 L 3.1 L Assessment and Plan 66 yo right-handed male with htn, dm, +ppm , difficulty w/ walking (cane at baseline) who presents with a LKNormal time on the evening of 06/15/22 while he was at [facility] and he started dropping things from his right hand; noticed weakness / numbness of arm (difficulty w/ gripping; difficulty w/ feet) right hand was constantly shaking yesterday; notes slight improvement today but not back to his baseline. 1. Acute Ischemic Stroke: ASA 325 mg PO qday, Plavix 75 mg po qday x 21 days; MRI Brain w/o contrast if ppm is mri-compatible o/w repeat nchct in am; TTEcho, confirm LDL/HgbA1C/TSH/Covid-19/UDS, telemetry, NIHSS q4 hours; SBP goal 160-200 mmHg and DBP 80-100 mmHg for now. Statin therapy for a goal LDL of 70, when patient passes swallow evaluation. PT/OT/ST/Swallow evaluation. Long-term risk- factor modification, including a strict diet/exercise regimen for secondary stroke prophylaxis. Stroke education prior to discharge. Followup with Stroke Neurology in 4-6 weeks. 2. Right Hand Weakness - pt/ot evaluation/monitoring. 3. Unsteady Gait - pt/ot evaluation/monitoring; cane at baseline. 4. Cardiac Arrhythmia - consider interrogating ppm via cardiology. Colby Josue MD Neurology [id number]
--- NOTE | 2022-06-17 10:34 | Electrocardiograph Report ---
[facility] Test Date: 2022-06-17 Test Time: 06:49:50 Pat Name: PHILL SHIELDS Department: Room: A484 1 Gender: M Psychiatric Secretary: KAREN : 1955 Requested By: CARLOS KELLY Order Number: [id number] Reading MD: Stuart Yanez Measurements Intervals [place] Rate: 71 P: 66 AL: 191 QRS: -90 QRSD: 143 T: 88 QT: 482 QTc: 524 Interpretive Statements Atrial-sensed ventricular-paced rhythm No previous ECG available for comparison Electronically Signed On 06-17-2022 10:34:09 EDT by Stuart Yanez
[2022-06-17 11:12] LABS: Hematocrit 47.8 % (35.5-45.6); Hemoglobin 15.9 gm/dl (11.8-15.2); Mean Corpuscular HGB Conc 33 % (32-34); Mean Corpuscular Volume 95 fl (84-94); Platelet Count 201 K/mm3 (140-440); Red Blood Count 5.03 M/mm3 (3.65-5.03); Red Cell Distribution Width 14.3 % (13.2-15.2)
[2022-06-17] MEDS: INSULIN NPH/REGULAR 70/30 INJ SUB-Q SCH ×2 (13:16→18:45)
[2022-06-17 20:36] LABS: Total Cells Counted 100
[2022-06-17 20:37] LABS: Platelet Estimate Consistent w Auto
[2022-06-17] MEDS ORDERED: hydrALAZINE 20 MG/1 ML INJ IV PRN (23:27)
[2022-06-17] MEDS: SODIUM CHLORIDE 0.9% 1000 ML 1,000 ML IV SCH (23:38)
[2022-06-18 04:36] VITALS: BP 172/104
--- NOTE | 2022-06-18 14:13 | Discharge Summary ---
Providers - Providers Date of Admission: 06/16/22 17:56 Date of discharge: 06/18/22 Attending physician: LILIAN ARAGON 06/16/22 16:41 Consult to Physician [CONS] Routine Comment: Consulting Provider: CARMITA FRAGA Physician Instructions: Reason For Exam: CVA 06/16/22 17:49 Occupational Therapy Evaluate and Treat [CONS] Routine Comment: Reason For Exam: Neuro deficits Physical Therapy Evaluation and Treat [CONS] Routine Comment: Reason For Exam: Neuro deficits Hospitalization Condition: Fair Pertinent studies: CT head without contrast: findings suggest presence of a small cortical infarction involving the left parietal vertex age-indeterminate correlation with MRI, MRI cannot be done as patient has permanent pacemaker CTA head no significant abnormality CTA neck no significant vascular abnormality Echocardiogram LVEF less than 20% no PFO on bubble study Chest x-ray no acute abnormality Disposition: 07 LEFT AGAINST MEDICAL ADVICE Exam - Constitutional Vitals: Temp Pulse Resp BP Pulse Ox 98.0 F 91 H 15 172/104 95 06/18/22 03:35 06/18/22 03:35 06/18/22 03:35 06/18/22 03:35 06/18/22 03:35 Plan Follow up with: MD KAUSHAL [Other] - 3-5 Days Forms: AMA Form
--- NOTE | 2022-06-18 15:04 | Event Note ---
Date: 06/18/22 I called [facility] at [phone] Elías Brooks, the patient's condition, tests and reports, treatment plan as well as discharge today. I also informed that patient left AMA prior to my giving discharge orders.I answered all her questions, she said she would set up follow- up appointments for him, and was appreciative of my call.
== END 2022-06-18 07:35 | disposition left against medical advice (07) | DRG 66 ==
LOC: ED 11:55 → 4A 17:56
PROVIDERS: ADMIT Internal Medicine; ATTEND Internal Medicine
DX: I63.9 Cerebral infarction, unspecified (principal); D75.1 Secondary polycythemia; Z95.0 Presence of cardiac pacemaker; I11.0 Hypertensive heart disease with heart failure; E11.9 Type 2 diabetes mellitus without complications; R26.81 Unsteadiness on feet; Z53.29 Procedure and treatment not carried out because of patient's decision for other reasons; G83.21 Monoplegia of upper limb affecting right dominant side; I50.9 Heart failure, unspecified; Z82.49 Family history of ischemic heart disease and other diseases of the circulatory system
CPT/HCPCS: 36415; 70450; 70496; 70498; 71045; 80053; 80307; 81001; 82550; 82553; 82962; 84484; 85007; 85025; 85610; 85670; 85730; 93005; 93306; 99285; G0378; Q0177; Q9967; C8929; J0360; J1815; J7030